=== PATIENT | female | born 1950 | race Hispanic/Latino ===

== ENCOUNTER → 2017-10-26 | Outpatient (CLI) | payer OTHER ==
[~2017-10-26] MED LIST: LEVO50TA11 PO; LORA10CA9 PO; METO-408 PO; MULT-685 PO; SIMV10TA6 PO
== END | disposition home or self-care (01) ==
LOC: RAH 09:55
PROVIDERS: ATTEND Internal Medicine Cardiovascular Disease
DX: Z13.6 Encounter for screening for cardiovascular disorders (principal)
CPT/HCPCS: 75571

== ENCOUNTER → 2018-05-22 | Outpatient (CLI) | payer OTHER | END | disposition home or self-care (01) | LOC: RAH 13:09 | PROVIDERS: ATTEND Internal Medicine | DX: M25.511 Pain in right shoulder (principal) | CPT/HCPCS: 73030 ==

== ENCOUNTER → 2022-05-24 | Outpatient (CLI) | payer OTHER ==
[~2022-05-24] MED LIST changes: -SIMV10TA6 PO; +SIMV10TA97 PO
== END | disposition home or self-care (01) ==
LOC: SHCH 14:08
PROVIDERS: ATTEND Internal Medicine Cardiovascular Disease
DX: I34.0 Nonrheumatic mitral (valve) insufficiency (principal); I34.1 Nonrheumatic mitral (valve) prolapse
CPT/HCPCS: 93306

== ENCOUNTER → 2022-06-23 | Outpatient (CLI) | payer OTHER | END | disposition home or self-care (01) | LOC: RAH 08:29 | PROVIDERS: ATTEND Nurse Practitioner Family | DX: K59.00 Constipation, unspecified (principal); R10.9 Unspecified abdominal pain; R19.5 Other fecal abnormalities | CPT/HCPCS: 74176 ==

== ENCOUNTER → 2022-07-06 | Outpatient (CLI) | payer OTHER | END | disposition home or self-care (01) | LOC: RAH 07:36 | PROVIDERS: ATTEND Internal Medicine | DX: K76.89 Other specified diseases of liver (principal) | CPT/HCPCS: 76705 ==

== ENCOUNTER 2024-11-20 10:34 | Emergency (ER) | payer OTHER ==
[~2024-11-20] VITALS: Ht 162.6 cm; Wt 57.6 kg
--- NOTE | 2024-11-20 11:05 | ERN ---
ED Note History of Present Illness Stated Complaint: LT SIDE FACIAL TWITCH Chief Complaint: Face Pain/Problem Time Seen by MD: 10:57 Time Seen by Midlevel: 11:00 Dictation: 74-year-old female with a history of hypothyroidism coming in from evaluation of twitching to the left side her face. Patient states she woke up and was pushing her teeth and she noticed twitching to the left side of her cheek. Denies having any numbness, tingling, drooping. Patient states she went to the the supervisor of way's office to get evaluated, fairly it was not in-house, and was told by the nurse to come to the hospital to be evaluated for stroke. Allergies: Coded Allergies: Penicillins (Unverified Allergy, Unknown, 02/21/17) Home Meds Reported Medications Loratadine (Loratadine) 10 Mg Capsule, 10 MG PO AM, CAP 02/22/17 Multivitamin with Minerals (Multiple Vitamin) 1 Each Tablet, 1 EACH PO DAILY, TAB 02/21/17 Simvastatin (Simvastatin) 10 Mg Tablet, 10 MG PO DAILY, TAB 02/21/17 Levothyroxine Sodium (Levothyroxine Sodium) 50 Mcg Tablet, 50 MCG PO DAILY, TAB 02/21/17 Metoprolol Succinate (Metoprolol Succinate) 25 Mg Tab.er.24h, 25 MG PO DAILY, TAB 02/21/17 Past Medical History Past Medical History: No Pertinent History, Other Additional Past Medical Hx: MITRAL VALVE PROLAPSE, LIVER CYST Surgical History: Other Review of System Dictation Constitutional: Negative for fever,chills, and weight loss Eyes: Negative for injury, pain,redness, and discharge ENT: Negative for injury,pain or swelling Cardiovascular: Negative for chest pain, palpitations, and edema Respiratory: Negative for shortness of breath, cough, and wheezing, Abdomen/GI: Negative for abdominal pain, nausea, vomiting, diarrhea, and constipation Back: Negative for injury and pain : Negative for injury, bleeding and discharge MS/Extremity: Negative for injury and deformity Skin: Negative for rash, and discoloration Neuro: Negative for headache, weakness, numbness, tingling, and seizure Psych: Negative for suicide ideation, homicidal ideation, and hallucinations Review of Systems: was completed Initial Vital Sign VS Vital Signs Date Time Temp Pulse Resp B/P (MAP) Pulse Ox O2 Delivery O2 Flow Rate FiO2 11/20/24 10:36 97.5 83 20 163/72 99 Room Air Physical Exam Dictation General: awake, alert, NAD Head/Face: Normocephalic, atraumatic Eyes: PERRL, EOMI, vision at baseline ENT: oral cavity clear, TMs clear, no signs of infection Neck: Trachea midline, supple, no nuchal rigidity Cardiovascular: RRR, normal S1/S2, No MRGs, no JVD Respiratory: CTAB, no respiratory distress, No rales or wheezes Abdomen: Soft, non-tender, non-distended, normal bowel sounds, no guarding or rebound. Skin: Warm, dry, normal turgor, no rash MS/Extremity: Pulses equal, no cyanosis, neurovascular intact, FROM Neuro: COAx4, GCS 15, strength 5/5, CN 2-12 intact, normal cerebellar exam, norm al gait, Psych: Normal behavior, mood, and affect normal Results (Laboratory/Radiology) Laboratory/Radiology Laboratory Tests Test 11/20/24 11:06 White Blood Count 3.3 K/uL (4.8-10.8) L Red Blood Count 3.75 MIL/uL (4.00-5.50) L Hemoglobin 11.3 g/dL (12.0-16.0) L Hematocrit 34.2 % (36-48) L Mean Corpuscular Volume 91.2 fL (79-99) Mean Corpuscular Hemoglobin 30.1 pg (27.0-33.0) Mean Corpuscular Hemoglobin Concent 33.0 g/dL (32.0-36.0) Red Cell Distribution Width 13.1 % (11.0-15.5) Platelet Count 153 K/uL (130-400) Mean Platelet Volume 11.2 fL (7.5-10.5) H Immature Granulocyte % (Auto) 0.3 % (0-1) Neutrophils (%) (Auto) 55.9 % (40.0-77.0) Lymphocytes (%) (Auto) 27.9 % (21.0-51.0) Monocytes (%) (Auto) 14.1 % (3.0-13.0) H Eosinophils (%) (Auto) 1.2 % (0.0-8.0) Basophils (%) (Auto) 0.6 % (0.0-5.0) Neutrophils # (Auto) 1.9 K/uL (1.8-7.7) Lymphocytes # (Auto) 0.9 K/uL (1.0-4.8) L Monocytes # (Auto) 0.5 K/uL (0.1-1.0) Eosinophils # (Auto) 0.04 K/uL (0.00-0.70) Basophils # (Auto) 0.02 K/uL (0.00-0.20) Absolute Immature Granulocyte (auto 0.01 K/uL (0-1) Nucleated Red Blood Cells 0.0 % (0.0-0.19) Sodium Level 141 mmol/L (136-145) Potassium Level 5.0 mmol/L (3.5-5.1) Chloride Level 104 mmol/L (101-111) Carbon Dioxide Level 30 mmol/L (21-32) Blood Urea Nitrogen 18 mg/dL (7-18) Creatinine 0.9 mg/dL (0.5-1.0) Glomerular Filtration Rate Calc 66 mL/min (>90) Random Glucose 126 mg/dL (70-105) H Total Calcium 9.4 mg/dL (8.5-10.1) Magnesium Level 2.00 mg/dL (1.80-2.40) Labs Reviewed?: Yes EKG Comment: EKGs did not 11 11, sinus rhythm at a rate of 79. No STEMI interpreted by ER MD ED Course ED Course Orders Procedure Category Date Status Time Cbc With Differential LAB 11/20/24 Complete 10:57 Basic Metabolic Panel LAB 11/20/24 Complete 10:57 Magnesium LAB 11/20/24 Complete 10:57 12 Lead Ekg Tracing- EKG 11/20/24 Logged Technical 10:57 Vital Signs Date Time Temp Pulse Resp B/P (MAP) Pulse Ox O2 Delivery O2 Flow Rate FiO2 11/20/24 10:36 97.5 83 20 163/72 99 Room Air Medical Decision Making MDM MDM: 74-year-old female with a history of hypothyroidism coming in from evaluation of twitching to the left side her face. Patient states she woke up and was pushing her teeth and she noticed twitching to the left side of her cheek. Denies having any numbness, tingling, drooping. Denies any unilateral weakness numbness tingling. Denies any dizziness, nausea or vomiting or any blurred vision. Patient states she went to the the supervisor of way's office to get evaluated, fairly it was not in-house, and was told by the nurse to come to the hospital to be evaluated for stroke. NIH is 0 in triage. States her "twitching" resolved prior to arriving to the emergency room. Discussed with the patient different differentials that this could possibly be, patient is refusing the CT scan of the head, states that she does not wanted to affect her thyroid with the all the radiation. Patient was educated on the benefits of getting a CT did not however still refused. CBC shows leukocytopenia, mild anemia no transfusion boil hemoglobin of 10. CBC unremarkable. EKGs shows no STEMI. Discussed findings with the patient. Educated patient to follow up with her PCP and to return to the hospital if any symptoms return or worsen. Patient verbalized understanding, answered all questions. Differential diagnosis: Electrolyte abnormality, dehydration, Rationale: Tests considered and ordered secondary to shared decision making include: Previous outside records reviewed: Old ER visits. Risk of complication and/or morbidity or mortality of patient management: None Medications-Per medication reconciliation Need for hospitalization: Patient does not meet criteria for hospitalization. Need for emergency major/minor surgery: No There are no social concerns with this patient. Prescription drug management Prescriptions will include symptomatic care Patient's prior external medical records from other ER visits were reviewed by me as indicated. Prior testing and results from previous visits were reviewed. Prior tests were taken into account with medical decision making and resource utilization, independent historian/historians were used to obtain complete medical history. I independently interpreted the test that were performed, results were reviewed by me and considered findings on radiology if ordered. Medical management and examination interpretation discussions were had by me with other qualified healthcare professionals as indicated for the patient's care. DX & DISP Disposition: Discharge Departure Impression: Primary Impression: Muscle twitching Condition: Stable Additional Instructions: Please follow up with your primary care doctor in 1-2 days. Return to the hospital if your symptoms return or worsen. Referrals: ALEXANDRO VO MD (PCP) Time of Disposition: 11:38 I have reviewed the case, and I agree with, Diagnosis and Plan TABBY DOAN NP Nov 20, 2024 11:05
[2024-11-20 11:17] LABS: IMMATURE GRANULOCYTE ABSOLUTE 0.01 K/uL (0-1); NUCLEATED RED BLOOD CELLS 0.0 % (0.0-0.19); PLATELET COUNT (AUTO) 153 K/uL (130-400); RED BLOOD CELL COUNT(AUTO) 3.75 MIL/uL (4.00-5.50); RED CELL DISTRIBUTION WIDTH 13.1 % (11.0-15.5); WHITE BLOOD COUNT (AUTO) 3.3 K/uL (4.8-10.8)
[2024-11-20 11:20] LABS: CREATININE 0.9 mg/dL (0.5-1.0); GLOMERULAR FILTR. RATE CALC 66.0 mL/min (>90); GLUCOSE,RANDOM 126.0 mg/dL (70-105); SODIUM SERUM 141.0 mmol/L (136-145); UREA NITROGEN, BLOOD 18.0 mg/dL (7-18)
[2024-11-20 11:40] VITALS: BP 157/69; PULSE 80; RESP 20; TEMP 97.5; O2SAT 99
--- NOTE | 2024-11-20 13:30 | EKG ---
Former[facility] Test Date: 2024-11-20 Test Time: 11:11:20 Pat Name: JUAN JNEKINS Department: ED Room: Gender: F Physical Therapy Resident: [id number] : [id number] Requested By: TABBY DOAN Order Number: [id number] Reading MD: Taco Leung Measurements Intervals [place] Rate: 79 P: 95 GA: 160 QRS: 34 QRSD: 79 T: 56 QT: 398 QTc: 457 Interpretive Statements Sinus rhythm Compared to ECG 06/12/2015 19:56:25 No significant changes Electronically Signed On 11-20-2024 22:16:04 CDT by Taco Leung Please click the below link to view image of tracing.
== END 2024-11-20 11:42 | disposition home or self-care (01) ==
LOC: EDH 10:34
DX: R25.3 Fasciculation (principal); Z79.899 Other long term (current) drug therapy; Z88.0 Allergy status to penicillin
CPT/HCPCS: 36415; 80048; 83735; 85025; 93005; 99284